=== PATIENT | male | born 1955 | race Caucasian/White ===

== ENCOUNTER 2016-06-26 14:41 | Inpatient (IN) ==
[2016-06-26] MEDS ORDERED: methylPREDNISolone SOD SUC 125 MG/2 ML VIAL IV STA (15:12)
[2016-06-26] MEDS ORDERED: FUROSEMIDE 100 MG/10 ML VIAL IV STA (15:12)
[2016-06-26] MEDS ORDERED: NITROGLYCERIN 2% OINT 1 INCH/GM PACK TOP STA (15:12)
[2016-06-26] MEDS ORDERED: hydrALAZINE 20 MG/1 ML VIAL IV STA (15:13)
--- NOTE | 2016-06-26 15:16 | EKG Report ---
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
[2016-06-26] MEDS: ALBUTEROL 2.5 MG/3 ML NEB RESP TX SCH ×2 (15:25→21:38)
[2016-06-26] MEDS ORDERED: NITROGLYCERIN 2% OINT 1 INCH/GM PACK TOP ONE (15:26)
[2016-06-26] MEDS ORDERED: FUROSEMIDE 40 MG/4 ML VIAL ONE (15:26)
[2016-06-26] MEDS ORDERED: methylPREDNISolone SOD SUC 125 MG/2 ML VIAL ONE (15:26)
[2016-06-26] MEDS ORDERED: hydrALAZINE 20 MG/1 ML VIAL ONE (15:26)
[2016-06-26] MEDS ORDERED: FUROSEMIDE 20 MG/2 ML VIAL ONE (15:26)
[2016-06-26 16:17] LABS: Basophils % 0.3 % (0.0-0.8); Eosinophils # 0.1 10*3/uL (0.0-0.87); Eosinophils % 0.6 % (0.00-10.9); Hematocrit 36.4 VOL% (42.0-52.0); Hemoglobin 12.8 GM/DL (14.0-18.0); Immature Granulocytes % 0.5 %; Immature Granulocytes Absolute 0.05 #; Lymphocytes % 9.6 % (21.2-54.2); Mean Corpuscular HGB Conc 35.2 GM/DL (32-36); Mean Corpuscular Hemoglobin 36 PG (27-34); Mean Corpuscular Volume 103.1 FL (87-102); Mean Platelet Volume 9.9 FL (9.6-12.0); Monocytes # 0.5 10*3/uL (0.11-0.8); Monocytes % 4.8 % (1.7-12.7); Neutrophils # 8.5 10*3/uL (1.4-7.4); Neutrophils % 84.2 % (38.7-73.9); Platelet Count 161 T/CUMM (130-400); Red Blood Count 3.53 MC/CUMM (3.8-5.5); Red Cell Distribution Width 15.1 % (9.3-17.3); White Blood Count 10.1 T/CUMM (4-12)
--- NOTE | 2016-06-26 16:21 | XRay Report ---
Exam: XR chest 1V portable Date: 06/26/2016 3:12 PM Indication: Shortness of breath Comparison: None Technical: AP semierect portable Findings: Mild prominence the cardiac silhouette. Some interstitial edema present. No pneumothorax. The mediastinum and bony structures are otherwise intact. External cardiac leads are present. Impression: 1. Mild cardiac enlargement and CHF with interstitial /alveolar edema PROCEDURE INTERPRETED AT [facility] DEPARTMENT OF RADIOLOGY Final Report Signed by: Dr. Tristen Parra
[2016-06-26 16:50] LABS: Albumin 3.5 G/DL (3.4-5.0); Bilirubin,Total 0.9 MG/DL (0.2-1.0); Calcium 8.4 MG/DL (8.5-10.1); Osmolality,Calculated 283.1 MOS/KG (273-304); Potassium 3.4 MMOL/L (3.5-5.1); Total Protein 6.2 G/DL (6.4-8.3); Troponin I Only 0.044 NG/ML (0.00-0.045)
[2016-06-26 16:56] LABS: Apearance,Urine CLEAR (Clear); Bilirubin,Urine Negative (Negative); Blood, Urine Negative (Negative); Glucose,Urine (UA) Negative (Negative); Ketones,Urine Negative (Negative); Mucus,Urine Occasional /LPF (Occasional); Nitrite,Urine Negative (Negative); Protein,Urine Negative; RBC,Urine <1 /HPF (0-4); Urine Color Straw (Yellow); Urine Specific Gravity 1.004 (1.001-1.035); Urine Urobilinogen < 2.0 EU/DL (0.2-1.0); WBC,Urine <1 /HPF (0-6)
[2016-06-26] MEDS ORDERED: MORPHINE 2 MG/1 ML SYRINGE IV STA (17:24)
[2016-06-26] MEDS ORDERED: MAGNESIUM SULF RIDER 4 GM in PREMIX 1 EACH IV PRN (17:24)
[2016-06-26] MEDS ORDERED: ONDANSETRON 4 MG/2 ML VIAL IV PRN (17:24)
[2016-06-26] MEDS ORDERED: MAGNESIUM SULF RIDER 2 GM in PREMIX 1 EACH IV PRN (17:24)
[2016-06-26] MEDS ORDERED: ACETAMINOPHEN 325 MG TABLET PO PRN (17:24)
[2016-06-26] MEDS ORDERED: MORPHINE 2 MG/1 ML SYRINGE IV PRN (17:24)
[2016-06-26] MEDS ORDERED: MORPHINE 2 MG/1 ML SYRINGE ONE (17:24)
[2016-06-26] MEDS ORDERED: SODIUM CHLORIDE 0.45% 1,000 ML IV SCH (17:30)
--- NOTE | 2016-06-26 17:48 | Emergency Department Note ---
IMingo Jamie, am scribing for, and in the presence of, Ezra Oseguera MD 15:13. IOumar Doug C, MD, personally performed the services described in this documentation, ascribed by Philipp Aguila in my presence, and it is both accurate and complete 626 . Arrival - Arrival Chief Complaint: Shortness of Breath Stated Complaint: cant breath ED Nursing Triage Note: C/O HAVING SOB X 2 WEEKS., STATES HE IS USING BIPAP AND THAT NORMALLY WORKS BUT TODAY IT IS NOT WORKING, " ITS LIKE I AM HAVING AN ASTHMA ATTACK AND A PANIC ATTACK TOGETHER" ,DENIES HAVING CHEST PAIN , STATES STRUGGLING TO GET AIR IN AND AIR OUT Mode of Arrival: Ambulatory Limitations: No Limitations Source: Patient, RN Notes Reviewed - History of Present Illness HPI Narrative: Patient 61-year-old gentleman presented emergency room complaining of increasing shortness of breath over the last 2 weeks. Patient states it got worse over the last 24 hours he really had trouble today. Patient states she has not had any fever or chills and he denies any sputum production. He denies any chest pain associated with this and states she has not had any diaphoresis, neck shoulder arm discomfort. He has a long history of tobacco abuse but is finally quit smoking after over 40 years. 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 Onset (ago): week(s) (2) Consistency: constant Severity: moderate Allergies/Adverse Reactions: Allergies Allergy/AdvReac Type Severity Reaction Status Date / Time codeine Allergy Unknown HIVES Verified 06/26/16 14:58 Penicillins Allergy Unknown HIVES Verified 06/26/16 14:58 Home Medications: Home Medications Medication Instructions Recorded Confirmed Type Carvedilol Phosphate [Coreg CR] 80 mg PO DAILY 06/26/16 06/26/16 History Irbesartan 300 mg PO DAILY 06/26/16 06/26/16 History Labetalol Tab [Trandate Tab] 200 mg PO TID 06/26/16 06/26/16 History Nifedipine [Nifedipine ER] 90 mg PO DAILY 06/26/16 06/26/16 History Review of System - Review of System 12 point system: reviewed and no additional remarkable complaints except as stated - Review of System Constitutional: Absent: chills, diaphoresis, fever, weakness Eyes: Absent: vision change Respiratory: Present: respiratory distress. Absent: cough Cardiovascular: Absent: chest pain Gastrointestinal: Absent: abdominal pain, nausea, vomiting, diarrhea, constipation Musculoskeletal: Absent: joint swelling Skin: Absent: rash, change in color Neurological: Absent: headache, weakness, numbness, confusion Hematological/Lymphatic: Absent: easy bleeding, easy bruising Medical,Surgical,& Family Hx - Medical History Cardio: History of: Hypertension Neurology: History of: Brain Aneurysm - Surgical History Surgical History: noncontributory Neurologic Surgeries: Surgical HX of: Neurologic Surgery (Previous back surgery) - Family History Family History: Reports;: Family Hypertension - Social History Smoking Status: Smoker, status unknown Frequency of Alcohol Use: Frequently Type of Drug Use: None Exam Vital Signs: Vital Signs Temperature 98.3 F 06/26/16 14:54 Pulse Rate 85 06/26/16 16:15 Respiratory Rate 24 06/26/16 16:15 Blood Pressure 159/106 06/26/16 16:15 O2 Sat by Pulse Oximetry 99 06/26/16 16:15 - General General appearance: alert, in no apparent distress - Head Head exam: Present: atraumatic, normocephalic, normal inspection - Eye Eye exam: Present: normal appearance, PERRL, EOMI - ENT ENT exam: Present: normal exam, normal oropharynx, mucous membranes moist, other (Patient has rhinophyma) - Neck Neck exam: Present: normal inspection, full ROM - Chest Chest inspection: Present: normal inspection - Respiratory Respiratory exam: Present: wheezes (Bilateral expiratory). Absent: normal lung sounds bilaterally, respiratory distress - Cardiovascular Cardiovascular exam: Present: regular rate, normal rhythm, normal heart sounds - Abdominal Exam Abdominal exam: Present: soft, normal bowel sounds. Absent: tenderness - Extremities Exam Extremities exam: Present: normal inspection, full ROM - Back Exam Back exam: Present: normal inspection, full ROM - Neurological Exam Neurological exam: Present: alert, oriented X3, CN II-XII intact, reflexes normal. Absent: motor sensory deficit - Psychiatric Psychiatric exam: Present: normal affect, normal mood - Skin Skin exam: Present: warm, dry, intact, normal color Course Course Narrative: Patient's clinical presentation, laboratory and radiograph findings discussed with Dr. Solorio. Patient be admitted to hospital and cardiology will be consulted. Patient was improved with therapy he received in the ER. Results - Labs CBC & BMP: 04/02/17 15:41 06/26/16 15:41 - Diagnostic Findings Procedure: Chest x-ray: report reviewed by me (Mild cardiac enlargement and CHF with interstitial/alveolar edema. ) Disposition Clinical Impression: CHF exacerbation Case discussed with: patient, patient's family Disposition: Still a Patient Condition: Guarded Time of Disposition: 17:48
[2016-06-26] MEDS: DOCUSATE SODIUM 100 MG CAPSULE PO SCH (20:54)
[2016-06-26] MEDS: ENOXAPARIN 40 MG/0.4 ML SYRINGE SUBCUT SCH (20:54)
[2016-06-26] MEDS: ISOSORBIDE DINITRATE 20 MG TABLET PO SCH (20:54)
[2016-06-26] MEDS: POTASSIUM CHLORIDE 20 MEQ TABLET PO PRN ×2 (20:54→23:33)
[2016-06-26 21:01] LABS: Troponin I Only 0.032 NG/ML (0.00-0.045)
[2016-06-26] MEDS ORDERED: hydrALAZINE 20 MG/1 ML VIAL IV PRN (22:25)
[2016-06-26] MEDS: methylPREDNISolone SOD SUC 40 MG/1 ML VIAL IV SCH (23:33)
[2016-06-27 00:30] LABS: Troponin I Only 0.033 NG/ML (0.00-0.045)
[2016-06-27] MEDS: ALBUTEROL 2.5 MG/3 ML NEB RESP TX SCH ×4 (01:15→19:42)
[2016-06-27] MEDS: POTASSIUM CHLORIDE 20 MEQ TABLET PO PRN ×4 (04:25→17:52)
[2016-06-27 05:47] LABS: Calcium 8.3 MG/DL (8.5-10.1); Osmolality,Calculated 291.1 MOS/KG (273-304); Potassium 3.3 MMOL/L (3.5-5.1)
--- NOTE | 2016-06-27 07:31 | EKG Report ---
Stationary ECG Study [facility] Test Date: 06/27/2016 7:31:10 AM Pat Name: CHAD TRUJILLO Department: Room: 277 Gender: M Director Of Student Financial Services: CHENG : 1955 Requested by: Leonid Rehman Order Number: [id number] Reading MD: TYRONE HARPER Intervals [place] Rate: 84 P: 59 [place]: 173 QRS: -3 QRSD: 104 T: 223 QT: 412 QTc: 453 Interpretive Statements SINUS RHYTHM WITH OCCASIONAL VENTRICULAR PREMATURE [email or web address] Electronically Signed On 06-28-16 10:06:38 CDT by TYRONE HARPER [email or web address]
--- NOTE | 2016-06-27 07:35 | Family Practice History&Phys ---
Assessment and Plan (1) Hypertension Status: Acute Assessment and plan: 06/27/2016: Patient's home medications were restarted. Current Visit: Yes (2) CHF exacerbation Status: Acute Assessment and plan: 06/27/2016: Cardiology will be consulted. Obviously his hypertension is contributing to this problem. Patient did have a left heart catheterization but it has been several years ago. Current Visit: Yes History of Present Illness Chief complaint: Shortness of breath History of present illness: Mr. Andrade is a 61 year old male Patient 61-year-old white male presented to the emergency room day of admission with increasing shortness of breath of 2 weeks duration. Patient states that slowly worsened over this course of time and got much worse in the last 24 hours. He was seen in the emergency room and chest x-ray showed evidence of congestive heart failure. Patient's blood pressure was markedly elevated when he first around the emergency room and this was treated appropriately. Patient admitted to stopping his nifedipine at home. Hospitalization was felt to be warranted as well as cardiology consultation. Patient was agreeable to that. He denies any chest pain associated with this. He has not had any nausea, vomiting or diaphoresis. He denies any neck shoulder arm discomfort. Patient does have a history of basilar artery aneurysm that is not amenable to stenting. Patient denies any headaches. Home Medications Medication Instructions Recorded Confirmed Type Carvedilol Phosphate [Coreg CR] 80 mg PO DAILY 06/26/16 06/26/16 History Irbesartan 300 mg PO DAILY 06/26/16 06/26/16 History Labetalol Tab [Trandate Tab] 200 mg PO TID 06/26/16 06/26/16 History Rosuvastatin [Crestor] 10 mg PO DAILY 06/26/16 06/26/16 History Allergies Allergy/AdvReac Type Severity Reaction Status Date / Time codeine Allergy Unknown HIVES Verified 06/26/16 14:58 Penicillins Allergy Unknown HIVES Verified 06/26/16 14:58 - Constitutional Constitutional: Absent: chills, fatigue, fever(s), headache(s) - EENT Eyes: Absent: blurry vision, loss of vision Ears: Absent: decreased hearing, ear pain Nose, mouth and throat: Absent: hoarseness, nasal congestion, sinus pressure, sore throat - Cardiovascular Cardiovascular: Present: dyspnea, dyspnea on exertion. Absent: chest pain at rest, claudication, diaphoresis, orthopnea, palpitations, PND - Respiratory Respiratory: Present: dyspnea, wheezing. Absent: cough - Gastrointestinal Gastrointestinal: Absent: abdominal pain, diarrhea, dyspepsia, dysphagia, melena , nausea, vomiting - Genitourinary Genitourinary: Absent: dysuria, hematuria, urinary frequency - Musculoskeletal Musculoskeletal: Absent: arthralgias, back pain - Neurological Neurological: Absent: confusion, dizziness, numbness, paresthesias - Psychiatric Psychiatric: Absent: anxiety, confusion - Endocrine Endocrine: Absent: fatigue, polydipsia, polyphagia - Hematologic/Lymphatic Hematologic/Lymphatic: Absent: easy bleeding, easy bruising Medical,Surgical,& Family Hx - Medical History Cardio: History of: Hypertension Neurology: History of: Brain Aneurysm Respiratory: History of: COPD - Surgical History Neurologic Surgeries: Surgical HX of: Brain Aneurysm, Neurologic Surgery ( Previous back surgery) - Family History Family History: Reports;: Family Cancer (aunts and uncles), Family Heart Disease (father), Family Hypertension (brother, father), Family Stroke (father) Denies;: Family Diabetes, Family Hematology, Family Psychiatric Problems - Social History Smoking Status: Former smoker (Patient had an [id number] history of tobacco abuse but has now quit.) Frequency of Alcohol Use: Frequently Type of Drug Use: None Exam - Constitutional Vitals: Period Temp Pulse Resp BP Sys/Andrea Pulse Ox Last 24 Hr 96.8 F-98.7 F 82-94 18-24 148-193/87-125 94-99 Exam: General: Objective patient is a well-developed white male in no acute distress. Patient certainly less dyspneic than yesterday on admission. HEENT: Pupils equal and reactive to light. Patent nares and airway Neck: No meningismus, adenopathy, thyromegaly. There are no auscultated carotid bruits. Cardiovascular: Regular rhythm. No murmurs or gallops Chest: Clear to auscultation without rales rhonchi wheezes. Abdomen: Soft nontender to palpation No masses, rebound, guarding or tenderness. Neuro: Cranial nerves intact and DTRs and strength symmetric in all extremities. Dermatologic: No evidence of abnormal lesions or masses. Musculoskeletal: There is no joint swelling or tenderness or deformity. Extremities: There is no calf swelling or tenderness. Results - Labs CBC & BMP: 06/26/16 15:41 06/27/16 04:24 Lab Results: I have reviewed the past 24 hour labs - EKG EKG results: interpreted by MENA, sinus rhythm, no acute changes - Diagnostic Findings Procedure: Chest x-ray: report reviewed by me (Changes of pulmonary edema.)
--- NOTE | 2016-06-27 08:08 | XRay Report ---
Referring Physician: Leonid Oseguera Exam: XR chest 1V Date: June 27, 2016 at 6:54 AM Reason: Shortness of breath Comparison: Chest one view portable June 26, 2016 Findings: The cardiac silhouette is upper normal in size. There are minimal opacities within the right lower lung zone, and the interstitial markings are slightly prominent bilaterally. This likely represents mild pulmonary edema and atelectasis, but pneumonia is not excluded. No pneumothorax is identified. No acute osseous process is seen. Impression: Interval improvement aeration of both lungs, especially at the lower lung zones. PROCEDURE INTERPRETED AT [facility] DEPARTMENT OF RADIOLOGY Final Report Signed by: Dr. Marian Guerra
--- NOTE | 2016-06-27 08:25 | Cardiology Consult Note ---
Assessment and Plan - Time spent with patient Time spent with patient: Greater than 30 minutes (due to assessment, plan, and documentation) (1) CHF exacerbation Status: Acute Assessment and plan: 61 y/o WM routinely followed by Dr. Robin with history of HTN, CAD, HLD, ADEN, tobacco and alcohol abuse. Presented to ED on 06/26/16 with CHF exacerbation. Currently being diuresed with Lasix. Continues to have mild conversational dyspnea with few expiratory wheezes. - CHF exacerbation - will obtain and review echocardiogram. Continue Lasix. Check D-Dimer. - hypokalemia - has been placed on potassium replacement protocol. - hypertension - home medications have been restarted. Will monitor and adjust as needed. - dyslipidemia - patient was previously on crestor, but stopped this on his own due to economic reasons. - obstructive sleep apnea - continue CPAP on home settings. Current Visit: Yes (2) Hypertension Status: Chronic Current Visit: Yes (3) Dyslipidemia Status: Chronic Current Visit: Yes (4) CAD (coronary artery disease) Status: Chronic Current Visit: Yes (5) Alcohol abuse Status: Chronic Current Visit: Yes (6) History of tobacco abuse Status: Chronic Current Visit: Yes (7) Hypokalemia Status: Acute Current Visit: Yes (8) Obstructive sleep apnea Status: Chronic Current Visit: Yes History of Present Illness - Data of Consult Patient: known to practice within the last 3 years (routinely followed by Dr. Robin) Consult date: 06/26/16 Requesting Physician: Ezra Oseguera Primary care physician: Ezra Oseguera - Consult Narrative Reason for consult: CHF exacerbation History of present illness: Mr. Andrade is a 61 year old male who is routinely followed by Dr. Robin. His primary care provider is Dr. Oseguera. He has a history of mild coronary artery disease, hypertension, dyslipidemia, alcohol abuse, peripheral vascular disease, obstructive sleep apnea (compliant), chronic neck pain, tobacco abuse. His last heart catheterization was done over 10 years ago at [facility]. He also has history of basilar artery aneurysm that is not amenable to stenting. Mr. Andrade presented to the emergency room yesterday with complaints of worsening shortness of breath over the last month. He tells me he has felt a "smothering" sensation off and on for the past month. His is at the bedside and tells me it started with him having an episode of shortness of breath every 2-3 days but has increased in frequency. He reports his shortness of breath is worse when laying down. He states that he has had to occasionally put on his bipap during the day in order to feel like he is getting his air. He denies chest pain, palpitations, dizziness, lightheadedness, syncope, or painful inspiration. He admits to being out of his nifedipine for 1 week. Chest x-ray on admission showed evidence of congestive heart failure. He has received a dose of IV Lasix and reports he is feeling better today although he still has some conversational dyspnea. EKG shows sinus rhythm with borderline left axis deviation and non-specific T-wave abnormality. Cardiac biomarkers were checked and the patient was found to have a mildly elevated CK-MB with normal troponins and normal CPK. Creatinine was 1.2. Potassium today is 3.3. Further plan and addendum to follow by Dr. Hickey. CC: Ezra Oseguera MD - Home Medications and Allergies Home Medications: Home Medications Medication Instructions Recorded Confirmed Type Carvedilol Phosphate [Coreg CR] 80 mg PO DAILY 06/26/16 06/26/16 History Irbesartan 300 mg PO DAILY 06/26/16 06/26/16 History Labetalol Tab [Trandate Tab] 200 mg PO TID 06/26/16 06/26/16 History Rosuvastatin [Crestor] 10 mg PO DAILY 06/26/16 06/26/16 History Allergies/Adverse Reactions: Allergies Allergy/AdvReac Type Severity Reaction Status Date / Time codeine Allergy Unknown HIVES Verified 06/26/16 14:58 Penicillins Allergy Unknown HIVES Verified 06/26/16 14:58 Review of systems: - Constitutional: Present: fatigue, As per HPI. Absent: anorexia, chills, daytime sleepiness, excessive sweating, fever(s), frequent falls, headache(s), increased appetite, lethargy, malaise, night sweats, stops breathing during sleep, weakness, weight gain, weight loss, - EENT Eyes: Present: As per HPI. Absent: blurry vision, diplopia, loss of vision Ears: Present: As per HPI. Absent: decreased hearing, ear discharge, ear pain Nose, mouth and throat: Present: nasal congestion, As per HPI. Absent: dysphagia , epistaxis, headache(s), hoarseness, lip swelling, neck mass, neck pain, sinus pressure, sore throat, throat swelling, tongue swelling, vertigo - Cardiovascular: Present: dyspnea, dyspnea on exertion, as per HPI. Absent: chest pain at rest, chest pain with activity, edema, claudication, diaphoresis, radiating jaw, neck or arm pain, lightheadedness, orthopnea, palpitations, PND - Respiratory: Present: dyspnea, dyspnea on exertion, as per HPI. Absent: cough , hemoptysis, wheezing, snoring, pain on inspiration - Gastrointestinal: Present: As per HPI. Absent: abdominal pain, bloating, change in bowel habits, constipation, diarrhea, heartburn, hematemesis, hematochezia, loose stools, melena, nausea, vomiting - Genitourinary: Present: As per HPI. Absent: difficulty urinating, dysuria, flank pain, hematuria, nocturia, urinary frequency, urinary incontinence - Musculoskeletal: Present: chronic neck pain, As per HPI. Absent: arthralgias, back pain, joint swelling, limited range of motion, muscle cramps, muscle weakness, myalgias - Neurological: Present: As per HPI. Absent: abnormal gait, abnormal speech, behavioral changes, confusion, convulsions, disequilibrium, dizziness, focal weakness, frequent falls, headache(s), memory loss, numbness, paresthesias, radicular pain, syncope, tremor(s) - Psychiatric: Present: As per HPI. Absent: anxiety, confusion, depression, panic attacks - Endocrine: Present: fatigue, As per HPI. Absent: cold intolerance, heat intolerance, polydipsia, polyphagia - Hematologic/Lymphatic: Present: As per HPI. Absent: easy bleeding, easy bruising, lymphadenopathy Medical,Surgical,& Family Hx - Medical History Cardio: History of: Hypertension Neurology: History of: Brain Aneurysm Respiratory: History of: COPD - Surgical History Neurologic Surgeries: Surgical HX of: Brain Aneurysm, Neurologic Surgery ( Previous back surgery) - Family History Family History: Reports;: Family Cancer (aunts and uncles), Family Heart Disease (father), Family Hypertension (brother, father), Family Stroke (father) Denies;: Family Diabetes, Family Hematology, Family Psychiatric Problems - Social History Smoking Status: Former smoker (Patient had an [id number] history of tobacco abuse but has now quit.) Frequency of Alcohol Use: Frequently Type of Drug Use: None Marital Status: Lives With:: Spouse Functional capacity: independent ambulation Physical Examination Vital Signs Temp Pulse Resp BP Pulse Ox 98.3 F 80 18 192/125 93 L 06/26/16 14:54 06/26/16 14:54 06/26/16 14:54 06/26/16 14:54 06/26/16 14:54 Other: General: Present: Appears Well, No Apparent Distress. Pleasant and cooperative. Mild conversational dyspnea. HEENT: Present: PERRL, Normocephaly, atraumatic. Mucus Membranes Moist. No jaundice noted. Conjunctiva moist and clear, sclerae anicteric Neck: Present: Supple Neck, Midline Trachea, No Masses, No Bruit Cardiac: Present: Regular Rate and Rhythm, No Murmur Lungs: Present: few expiratory wheezes otherwise Clear to auscultation bilaterally, rhonchi, rales. Neuro: Present: Awake, alert, and oriented x3. Moves all extremities well without hemiparesis or paralysis. Grossly Intact. Absent: Resting Tremor, Essential Tremor Abdomen: Present: Soft, Active Bowel Sounds, No Masses, Non-Tender, nondistended. No abdominal bruit or thrill noted. Skin: Present: Clear. Absent: Rash, No skin breakdown. Musculoskeletal: Present: No Fluid Collection, No Pain, Normal Range of Motion Extremities: Present: Normal Gait, No Clubbing, No Cyanosis, Upper Extr. Pulses 2+, Lower Extr. Pulses 2+, No edema. Capillary refill less than 3 seconds. Result/EKG - Labs CBC & BMP: 06/26/16 15:41 06/27/16 04:24 Lab Results: I have reviewed the past 24 hour labs Labs: Laboratory Results - last 24 hr 06/26/16 06/26/16 06/27/16 20:26 23:46 04:24 Sodium 142 Potassium 3.3 L Chloride 106 Carbon Dioxide 23 Anion Gap 16.3 H BUN 26 H D Creatinine 1.20 GFR Calculation 80 BUN/Creatinine Ratio 21.00 H Glucose 170 H Calculated Osmolality 291.1 Calcium 8.3 L Total Creatine Kinase 159 154 CK-MB (CK-2) 4.8 H 5.0 H Troponin I 0.032 0.033 B-Natriuretic Peptide 06/27/16 04:24 Sodium Potassium Chloride Carbon Dioxide Anion Gap BUN Creatinine GFR Calculation BUN/Creatinine Ratio Glucose Calculated Osmolality Calcium Total Creatine Kinase CK-MB (CK-2) Troponin I B-Natriuretic Peptide 637 H - EKG EKG results: interpreted by me, sinus rhythm (with nonspecific T-wave abnormality)
[2016-06-27] MEDS: ISOSORBIDE DINITRATE 20 MG TABLET PO SCH ×3 (08:37→21:17)
[2016-06-27] MEDS: CARVEDILOL CR 40 MG CAPSULE PO SCH (08:37)
[2016-06-27] MEDS: ASPIRIN CHEW 81 MG TABLET PO SCH (08:38)
[2016-06-27] MEDS: SPIRONOLACTONE 25 MG TABLET PO SCH (08:38)
[2016-06-27] MEDS: DOCUSATE SODIUM 100 MG CAPSULE PO SCH ×2 (08:38→21:18)
[2016-06-27] MEDS: PANTOPRAZOLE 40 MG TABLET PO SCH (08:38)
[2016-06-27] MEDS: IRBESARTAN 150 MG TABLET PO SCH (08:38)
[2016-06-27] MEDS: FUROSEMIDE 40 MG/4 ML VIAL IV SCH ×2 (08:39→15:45)
[2016-06-27] MEDS: methylPREDNISolone SOD SUC 40 MG/1 ML VIAL IV SCH ×2 (08:40→15:45)
[2016-06-27] MEDS ORDERED: PNEUMOCOCCAL VACCINE (23 VALENT) 0.5 ML VIAL IM ONE (09:00)
--- NOTE | 2016-06-27 10:48 | Ultrasound Report ---
History short of breath Bilateral lower extremity venous Doppler performed with grayscale, spectral Doppler, and color flow analysis performed and interpreted. No evidence of echogenic, noncompressible thrombus seen in either common femoral, superficial femoral, popliteal, or saphenous veins Impression: No evidence of DVT seen in either lower extremity. PROCEDURE INTERPRETED AT [facility] DEPARTMENT OF RADIOLOGY Final Report Signed by: Dr. Emani Johnson
[2016-06-27] MEDS: THIAMINE 100 MG TABLET PO SCH (11:39)
[2016-06-27] MEDS: MULTIVITAMIN (BEROCCA) TABLET PO SCH (11:39)
[2016-06-27] MEDS: FOLIC ACID 1 MG TABLET PO SCH (11:39)
--- NOTE | 2016-06-27 20:03 | ECHO Report ---
Yobany Andrade Exam Date: 06/27/2016 09:57 Referring Physician: Technologist: Darby Penny Age: 61 Ht (in): 73 Wt (lb): 193 Gender: M Exam Location: [facility] Echo Indications: CHF, excerbation, HTN BP: 164 / 91 HR: 115 Rhythm: Sinus Technical Quality: IMPRESSIONS Normal left ventricular size, with moderate concentric hypertrophy, with mild hypokinesis of the posterior segments and borderline global hypokinesis. Estimated left ventricular ejection fraction 50%. Grade 2 diastolic dysfunction. Mild left atrial enlargement. Mild eccentric mitral regurgitation. Mild aortic valve sclerosis, without stenosis, with mild insufficiency. MEASUREMENTS (Male / Female) Normal Values 2D ECHO LV Diastolic Diameter PLAX 4.3 cm 4.2 - 5.9 / 3.9 - 5.3 cm LV Systolic Diameter PLAX 3.3 cm LV Fractional Shortening PLAX 23.7 % IVS Diastolic Thickness 1.2 cm 0.6 - 1.0 / 0.6 - 0.9 cm LVPW Diastolic Thickness 1.5 cm 0.6 - 1.0 / 0.6 - 0.9 cm RV Internal Dim ED PLAX 2.3 cm Aortic Root Diameter 2.7 cm LA Systolic Diameter LX 3.9 cm 3.0 - 4.0 / 2.7 - 3.8 cm FINDINGS Left Ventricle Normal left ventricular size, with moderate concentric hypertrophy, with mild hypokinesis of the posterior segments and borderline global hypokinesis. Estimated left ventricular ejection fraction 50%. Grade 2 diastolic dysfunction. Right Ventricle Normal right ventricular size. Right Atrium Normal right atrial size. Left Atrium Mildly dilated left atrium. Mitral Valve Structurally normal mitral valve, with mild eccentric regurgitation. Aortic Valve Mild aortic valve sclerosis, without stenosis, with mild insufficiency. Tricuspid Valve Morphologically normal tricuspid valve. Trace tricuspid regurgitation, insufficient data to estimate pulmonary artery systolic pressure. Pulmonic Valve Pulmonic valve not well visualized. Pericardium No pericardial effusion. Aorta Normal size aortic root and proximal ascending aorta. Molina Hickey (Electronically Signed) Final Date: 27 June 2016 20:02
[2016-06-27] MEDS: ENOXAPARIN 40 MG/0.4 ML SYRINGE SUBCUT SCH (21:18)
[2016-06-28] MEDS: methylPREDNISolone SOD SUC 40 MG/1 ML VIAL IV SCH ×2 (00:23→08:37)
[2016-06-28] MEDS: ALBUTEROL 2.5 MG/3 ML NEB RESP TX SCH ×2 (01:17→07:15)
[2016-06-28 02:30] LABS: VLDL CHOLESTEROL 37.4 MG/DL
[2016-06-28 02:31] LABS: % Iron Saturation 15.9 % (18-50); Ferritin 46.2 ng/ml (26-388)
[2016-06-28 03:20] LABS: Folate 14.6 NG/ML (5.4-24.0)
--- NOTE | 2016-06-28 07:23 | Discharge Summary ---
Hospital Course - Hospital Course Hospital Course: Patient 61-year-old white male admitted through the emergency room with increasing shortness of breath and slight wheeze. Patient was found to have chest x-ray findings consistent with pulmonary edema. Patient was admitted my services and seen in consultation by Dr. Hickey and underwent echocardiogram which revealed him to have 50% EF and mild diastolic dysfunction. Patient's blood pressure was quite elevated in the emergency room and apparently he had run out of his nifedipine. This was restarted and his blood pressures are much improved. Patient does have a history of basal artery aneurysm is to follow-up with Dr. Larson at [facility] as they apparently may have a stent that was applicable to his problem. Patient had no chest pain and his cardiac isoenzymes remained negative. It was noted that his BNP was slightly elevated on admission. Patient was discharged home today on current meds. Diagnosis - Discharge Diagnosis (1) Hypertension Status: Chronic (2) CHF exacerbation Status: Acute Discharge Plan - Discharge Data Disposition: Disch To Home/Self Care Condition at Discharge: Stable Discharge Diet: advance to your usual diet Activity: resume usual activities as tolerated Hygiene: no restrictions Weight Bearing at Discharge: full weight bearing Driving: no restrictions Contact your physician if you experience:: fever over 101 - Discharge Medications New Acetaminophen Tab [Tylenol Tab] 650 mg PO Q6H PRN #0 tablet PRN Reason: Fever > 100.4 Or Headache Aspirin Chew Tab 81 mg PO DAILY tablet Folic Acid Tab 1 mg PO DAILY tablet Irbesartan [Avapro] 300 mg PO DAILY tablet Isosorbide Dinitrate [Isordil] 20 mg PO TID #90 tablet NIFEdipine XL TAB [Procardia Xl] 90 mg PO DAILY tablet Potassium Chloride Cap/Tab [K Dur] 20 meq PO .PER PROTOCOL PRN #60 tablet PRN Reason: Per Protocol Spironolactone [Aldactone] 12.5 mg PO DAILY #30 tablet Thiamine Tab [Vitamin B1 Tab] 100 mg PO DAILY tablet Multivitamin (Berocca) [Berocca] 1 tablet PO DAILY tablet hydrALAZINE TAB [Apresoline Tab] 50 mg PO TID #90 tablet Continue Irbesartan 300 mg PO DAILY Carvedilol Phosphate [Coreg CR] 80 mg PO DAILY Rosuvastatin [Crestor] 10 mg PO DAILY Labetalol Tab [Trandate Tab] 200 mg PO TID - Follow Up or Referral Follow Up: Ezra Oseguera MD [Emergency Provider] - 1 Month (CBC, ferritin, stool guaiac on return to office.) - Forms/Instructions Exam - Constitutional Vitals: Period Temp Pulse Resp BP Sys/Andrea Pulse Ox Last 24 Hr 97.4 F-98.1 F 72-89 16-20 134-164/71-92 92-100 Exam: Objective well-developed gentleman in no acute distress. He is lying flat in bed and has no dyspnea. Cardiovascular: Heart rates regular without murmurs or gallops. Respiratory: Lungs clear to auscultation bilaterally. Abdomen: Abdomen soft and nontender to palpation. Discharge Results Procedures and tests throughout hospitalization: Pending Orders 06/27/16 Occult Blood, Stool Routine 06/28/16 01:41 Transferrin IN AM Labs on day of discharge: Labs from last 24 hours 06/28/16 06/28/16 06/28/16 01:41 01:41 01:41 Absolute Retic Percent Retic Retic Hgb Equivalent D-Dimer, Quantitative Potassium 3.6 Iron TIBC % Saturation Ferritin Triglycerides 187 H Cholesterol 156 LDL Cholesterol 85.0 VLDL Cholesterol 37.4 HDL Cholesterol 52 Heart Disease Risk Ratio 3.00 Vitamin B12 299 Folate 14.6 06/28/16 06/28/16 06/27/16 01:41 01:41 11:28 Absolute Retic 0.1 Percent Retic 3.6 H Retic Hgb Equivalent 37.8 H D-Dimer, Quantitative Potassium 3.4 L Iron 54 L TIBC 340 % Saturation 15.9 L Ferritin 46.2 Triglycerides Cholesterol LDL Cholesterol VLDL Cholesterol HDL Cholesterol Heart Disease Risk Ratio Vitamin B12 Folate 06/27/16 08:35 Absolute Retic Percent Retic Retic Hgb Equivalent D-Dimer, Quantitative 0.9 Potassium Iron TIBC % Saturation Ferritin Triglycerides Cholesterol LDL Cholesterol VLDL Cholesterol HDL Cholesterol Heart Disease Risk Ratio Vitamin B12 Folate DS: Provider Date of admission: 06/26/16 17:24 Primary care physician: . No PCP Attending physician on admission: Ezra Oseguera MD Discharging clinician: Ezra Oseguera MD Expected date of discharge: 06/28/16
[2016-06-28 08:20] VITALS: BP 146/91
--- NOTE | 2016-06-28 08:21 | Cardiology Progress Note ---
Addendum entered and electronically signed by Jackelin Cho NP 06/28/16 08:49 : Original Note: Assessment and Plan - Time spent with patient Time spent with patient: Less than 30 minutes (1) CHF exacerbation Status: Acute Assessment and plan: 06/28/16 Echocardiogram yesterday revealed EF 50% with grade II/IV diastolic dysfunction. Shortness of breath is much improved. He continues to have mild expiratory wheezes. He tells me he quit smoking 1 month ago. -Encouraged to continue cessation. -Hydralazine 50mg PO TID was started yesterday. Blood pressures have been better controlled today. -Crestor has been resumed at discharge although patient admits to noncompliance. -Advised patient to start over the counter Fish Oil supplements (500mg PO BID) until seen by Dr. Robin in follow up. TGL 187. Further discussion of statin therapy can be done as an outpatient. 06/27/16 61-year-old male, presenting with worsening shortness of breath, which became refractory to BiPAP, for 1 month. Hypertension, CAD, hyperlipidemia, obstructive sleep apnea, alcohol and tobacco abuse. -Shortness of breath. I suspect diastolic CHF exacerbation, due to hypertensive heart disease. Check echo. Add hydralazine 50 mg 3 times daily, continue Coreg, irbesartan, nifedipine XL. -Continue iv diuresis, follow and replete electrolytes -Rule out secondary causes of shortness of breath. D-dimer was borderline elevated. Check DVT study. Clinically, suspicion for PE is low. Mild macrocytic anemia. Check anemia studies, start vitamins. -Borderline CPK-MB, with a normal troponin. No significant EKG changes and no angina. I doubt ACS -Recheck lipids. The patient stopper Crestor. A generic statin may be an option, if cost is an issue Current Visit: Yes (2) Hypertension Status: Chronic Current Visit: Yes (3) Dyslipidemia Status: Chronic Current Visit: Yes (4) CAD (coronary artery disease) Status: Chronic Current Visit: Yes (5) Alcohol abuse Status: Chronic Current Visit: Yes (6) History of tobacco abuse Status: Chronic Current Visit: Yes (7) Hypokalemia Status: Acute Current Visit: Yes (8) Obstructive sleep apnea Status: Chronic Current Visit: Yes Cardiology - PN: Subj Interval history: Mr. Andrade is feeling much better today. He has no current complaints at this time. He has no further conversational dyspnea. His nifedipine was increased during hospitalization and he was also diuresed. His bilateral lower extremity Dopplers were negative for DVT. Echocardiogram yesterday showed EF of 50%, moderate concentric hypertrophy, grade 2 diastolic dysfunction, mild left atrial enlargement, mild eccentric mitral regurgitation, mild aortic valve sclerosis without stenosis with mild insufficiency. Patient tells me he had previously stopped taking his Crestor due to cost. During this hospitalization lipid panel revealed triglycerides 187, cholesterol 156, LDL 85, HDL 52. Encouraged diet and exercise. 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 Robin back in the clinic. His dyslipidemia and statin therapy can be further discussed with his sulfur chloride operator at that follow-up visit. Exam (Progress Note) - Constitutional Vitals: Period Temp Pulse Resp BP Sys/Andrea Pulse Ox Last 24 Hr 97.4 F-98.1 F 72-87 16-20 134-151/71-92 92-100 Exam: General: Present: Appears Well, No Apparent Distress. Pleasant and cooperative. Mild conversational dyspnea. HEENT: Present: PERRL, Normocephaly, atraumatic. Mucus Membranes Moist. No jaundice noted. Conjunctiva moist and clear, sclerae anicteric Neck: Present: Supple Neck, Midline Trachea, No Masses, No Bruit Cardiac: Present: Regular Rate and Rhythm, No Murmur Lungs: Present: few expiratory wheezes otherwise Clear to auscultation bilaterally, rhonchi, rales. Neuro: Present: Awake, alert, and oriented x3. Moves all extremities well without hemiparesis or paralysis. Grossly Intact. Absent: Resting Tremor, Essential Tremor Abdomen: Present: Soft, Active Bowel Sounds, No Masses, Non-Tender, nondistended. No abdominal bruit or thrill noted. Skin: Present: Clear. Absent: Rash, No skin breakdown. Back: Normal inspection, no vertebral tenderness Musculoskeletal: Present: No Fluid Collection, No Pain, Normal Range of Motion Extremities: Present: Normal Gait, No Clubbing, No Cyanosis, Upper Extr. Pulses 2+, Lower Extr. Pulses 2+, No edema. Capillary refill less than 3 seconds. Result/EKG - Labs CBC & BMP: 06/26/16 15:41 06/28/16 01:41 Lab Results: I have reviewed the past 24 hour labs Labs: Laboratory Results - last 24 hr 06/27/16 06/27/16 06/28/16 08:35 11:28 01:41 Absolute Retic 0.1 Percent Retic 3.6 H Retic Hgb Equivalent 37.8 H D-Dimer, Quantitative 0.9 Potassium 3.4 L Iron TIBC % Saturation Ferritin Triglycerides Cholesterol LDL Cholesterol VLDL Cholesterol HDL Cholesterol Heart Disease Risk Ratio Vitamin B12 Folate 06/28/16 06/28/16 06/28/16 01:41 01:41 01:41 Absolute Retic Percent Retic Retic Hgb Equivalent D-Dimer, Quantitative Potassium Iron 54 L TIBC 340 % Saturation 15.9 L Ferritin 46.2 Triglycerides 187 H Cholesterol 156 LDL Cholesterol 85.0 VLDL Cholesterol 37.4 HDL Cholesterol 52 Heart Disease Risk Ratio 3.00 Vitamin B12 299 Folate 14.6 06/28/16 01:41 Absolute Retic Percent Retic Retic Hgb Equivalent D-Dimer, Quantitative Potassium 3.6 Iron TIBC % Saturation Ferritin Triglycerides Cholesterol LDL Cholesterol VLDL Cholesterol HDL Cholesterol Heart Disease Risk Ratio Vitamin B12 Folate - EKG EKG results: interpreted by me, sinus rhythm Specialty Discharge - Follow Up or Referrals Follow up with: Ezra Oseguera MD [Emergency Provider] - 1 Month (CBC, ferritin, stool guaiac on return to office.) Juan Robin MD [Physician] - (Follow up with Dr. Robin in 2-3 weeks. Patient has been previously unable to afford Crestor and has not been taking at home. )
[2016-06-28] MEDS: ASPIRIN CHEW 81 MG TABLET PO SCH (08:34)
[2016-06-28] MEDS: THIAMINE 100 MG TABLET PO SCH (08:34)
[2016-06-28] MEDS: DOCUSATE SODIUM 100 MG CAPSULE PO SCH (08:34)
[2016-06-28] MEDS: ISOSORBIDE DINITRATE 20 MG TABLET PO SCH (08:34)
[2016-06-28] MEDS: IRBESARTAN 150 MG TABLET PO SCH (08:34)
[2016-06-28] MEDS: FOLIC ACID 1 MG TABLET PO SCH (08:35)
[2016-06-28] MEDS: MULTIVITAMIN (BEROCCA) TABLET PO SCH (08:35)
[2016-06-28] MEDS: PANTOPRAZOLE 40 MG TABLET PO SCH (08:35)
[2016-06-28] MEDS: SPIRONOLACTONE 25 MG TABLET PO SCH (08:35)
[2016-06-28] MEDS: CARVEDILOL CR 40 MG CAPSULE PO SCH (08:35)
[2016-06-28] MEDS: FUROSEMIDE 40 MG/4 ML VIAL IV SCH (08:36)
--- NOTE | 2016-06-28 09:31 | EKG Report ---
Please refer to the EKG image. Final interpretation is pending.
== END 2016-06-28 10:25 | disposition home or self-care (01) | DRG 293 ==
LOC: N.ED 14:41 → N.EDINP 17:24 → N.TELES 19:30
PROVIDERS: ADMIT Family Medicine; ATTEND Family Medicine